=== PATIENT | female | born 1990 | race Caucasian/White ===

== ENCOUNTER 2017-11-15 05:55 | Day surgery (SDC) | payer OTHER ==
[~2017-11-15] VITALS: Ht 144.8 cm; Wt 35.8 kg
== END 2017-11-15 08:55 | disposition home or self-care (01) ==
LOC: MDS 05:55 → MMU 06:03 → MDS 08:55
PROVIDERS: ATTEND Internal Medicine Gastroenterology
DX: R10.13 Epigastric pain (principal); Z53.8 Procedure and treatment not carried out for other reasons; J45.909 Unspecified asthma, uncomplicated; F41.9 Anxiety disorder, unspecified; F32.9 Major depressive disorder, single episode, unspecified; Z98.890 Other specified postprocedural states; Z95.5 Presence of coronary angioplasty implant and graft; Z79.82 Long term (current) use of aspirin; Z79.899 Other long term (current) drug therapy
CPT/HCPCS: 71045; J7120; Q0092